=== PATIENT | male | born 1940 | race Caucasian/White ===

== ENCOUNTER 2016-12-10 07:08 | Emergency (ER) | payer OTHER, MEDICAID ==
[2016-12-10 07:08] VITALS: BMI 28.2
[2016-12-10 07:19] VITALS: RESP 18; TEMP 98.4; O2SAT 98
--- NOTE | 2016-12-10 07:53 | C.PDOC ---
History Of Present Illness 76 y/o male presents to ED with c/o left lower back pain for a few days. Patient reports pain radiates to his left groin and reports worse with walking. Notes he has not taken anything for pain. Denies trauma, headache, neck pain, nausea, vomiting, abdominal pain, new extremity weakness or numbness, dysuria, urinary or bowel incontinence, or other associated symptoms. Time Seen by Provider: 12/10/16 07:17 Chief Complaint (Nursing): Lower Extremity Problem/Injury History Per: Patient History/Exam Limitations: no limitations Onset/Duration Of Symptoms: Days Current Symptoms Are (Timing): Still Present Severity: Mild Recent travel outside of the [place]: No Additional History Per: Family Past Medical History Reviewed: Historical Data, Nursing Documentation, Vital Signs Vital Signs: Last Vital Signs Temp 98.4 F 12/10/16 07:17 Pulse 87 12/10/16 08:50 Resp 18 12/10/16 08:50 BP 131/62 12/10/16 08:50 Pulse Ox 98 12/10/16 16:14 - Medical History PMH: HTN, Hypercholesterolemia Surgical History: No Surg Hx - [facility] Procedures CATARAC PHACOEMULS/ASPIR (10/11/14) INSERT LENS AT CATAR EXT (10/11/14) Family History: States: Unknown Family Hx - Social History Hx Tobacco Use: No Hx Alcohol Use: Yes Hx Substance Use: No - Immunization History Hx Influenza Vaccination: Yes Review Of Systems Except As Marked, All Systems Reviewed And Found Negative. Constitutional: Negative for: Fever, Chills Gastrointestinal: Negative for: Nausea, Vomiting Genitourinary: Negative for: Dysuria, Incontinence Musculoskeletal: Positive for: Back Pain, Leg Pain Skin: Negative for: Rash Neurological: Negative for: Weakness, Numbness Physical Exam - Physical Exam Appears: Non-toxic, No Acute Distress Skin: Normal Color, Warm, Dry Head: Atraumatic, Normacephalic Neck: Normal ROM, No Midline Cervical Tenderness, No Paracervical Tenderness, Supple Chest: Symmetrical Cardiovascular: Rhythm Regular Respiratory: Normal Breath Sounds, No Rales, No Rhonchi, No Wheezing Gastrointestinal/Abdominal: Soft, No Tenderness Back: No Vertebral Tenderness, Paraspinal Tenderness (left, lumbar), No Straight Leg Raising Extremity: Normal ROM, Capillary Refill (< 2 sec.) Neurological/Psych: Oriented x3, Normal Speech, Normal Cognition ED Course And Treatment O2 Sat by Pulse Oximetry: 98 (RA) Pulse Ox Interpretation: Normal - Radiology CXR: Interpreted by Me CXR Interpretation: Yes: No Acute Disease - Other Rad No standard instances X-Ray: Interpreted by Me Interpretation: LS Spine: compression deformity. Hip: no fx Progress Note: Treated with Flexeril and Motrin. Hip, Back x-rays ordered and reviewed. On re-evaluation ambulating with steady gait Reassessment Condition: Improved Disposition Counseled Patient/Family Regarding: Studies Performed, Diagnosis, Need For Followup, Rx Given - Disposition Referrals: Paulo Duran MD [Staff Provider] - Disposition: HOME/ ROUTINE Disposition Time: 08:30 Condition: IMPROVED Additional Instructions: Follow up with PMD for further evaluation Tylenol as needed for pain Prescriptions: Cyclobenzaprine [Cyclobenzaprine HCl] 10 mg PO BID PRN #10 tab PRN Reason: Pain, Mild (1-3) Instructions: Vertebral Compression Fracture (DC), Back Pain (ED) Forms: [employer] (Tajik) - POA Present On Arrival: None - Clinical Impression Clinical Impression: Back pain, Compression fracture of L3 lumbar vertebra - PA / PIL[employer] / Resident Statement MD/DO has reviewed & agrees with the documentation as recorded. - Scribe Statement The provider has reviewed the documentation as recorded by the Scribe All medical record entries made by the Scribe were at my direction and personally dictated by me. I have reviewed the chart and agree that the record accurately reflects my personal performance of the history, physical exam, medical decision making, and the department course for this patient. I have also personally directed, reviewed, and agree with the discharge instructions and disposition.
[2016-12-10 08:51] VITALS: BP 131/62; PULSE 87
--- NOTE | 2016-12-10 15:22 | RAD ---
PROCEDURE: Left Hip with pelvis X-ray Radiographs. HISTORY: pain COMPARISON: None. FINDINGS: BONES: There is no acute fracture or dislocation left hip joint with the pelvic ring grossly appearing intact. Degenerate changes seen the bilateral hip joints more so than sacroiliac joints. No suspicious lytic or blastic change. Pubic symphysis appears intact. Vascular calcifications are identified in the inferior pelvis soft tissues as well as the bilateral inguinal and thigh regions medially. Instill note is made of a ovoid radiodensity in the inferior pelvis suggests of the distended bladder. JOINTS: As above SOFT TISSUES: As above OTHER FINDINGS: None. IMPRESSION: 1. Moderate left hip degenerative joint disease without fracture dislocation. 2. Limited degenerate changes seen the bilateral sacroiliac joints and appears moderate at the right hip joint incidentally. No fracture of the pelvic ring identified.
--- NOTE | 2016-12-10 15:26 | RAD ---
PROCEDURE: Radiographs of the Lumbar Spine. HISTORY: pain COMPARISON: Abdomen pelvis CT 07/17/2014 FINDINGS: BONES: There is a mild anterior wedge compression fracture of the L3 vertebral body which is ended and interval finding compared to prior CT 07/17/2014, however, this still may be chronic. Bone scan or MRI can be utilized to attempt to time this fracture more accurately. There is a mild spondylolisthesis at L2-3 now, with L to slightly posterior to L3. Further, L5 is slightly anterior to S1 with both of these listheses less than 1 cm. These are likely degenerative as no obvious spondylolysis identified in the series. No suspicious lytic or blastic change. DISC SPACES: Multilevel spondylosis appreciated of [id number] severity. Tissue loss is mild at L3-4 and L5-S1 appear OTHER FINDINGS: None. IMPRESSION: 1. A mild anterior wedge compression fracture of L3 is identified of indeterminate age not identified on prior CT 07/17/2014 as discussed above. If clinically warranted follow-up MRI or bone scan can be utilized to attempt identified acute or subacute fracture. 2. Minimal grade 1 spondylolistheses L2-3 and L5-S1. 3. [id number] multilevel spondylosis.
== END 2016-12-10 08:51 | disposition home or self-care (01) ==
LOC: C.ER 07:08
DX: M48.56XA Collapsed vertebra, not elsewhere classified, lumbar region, initial encounter for fracture (principal)